=== PATIENT | female | born 1995 | race American Indian/Alaskan Native ===

== ENCOUNTER 2018-05-27 03:26 | Inpatient (IN) | payer MEDICAID ==
[2018-05-27] MEDS ORDERED: Lactated Ringers 1,000 ML IV SCH ×2 (03:45→05:45)
[2018-05-27] MEDS ORDERED: Lactated Ringers 1,000 ML IV ONE (03:45)
[2018-05-27] MEDS ORDERED: Ondansetron 4 MG/2 ML SDV IV PRN (04:05)
[2018-05-27] MEDS ORDERED: fentaNYL 100 MCG/2 ML SDV ONE (04:22)
[2018-05-27] MEDS ORDERED: Bupivacaine 0.75%/D5W 2 ML Amp ONE (04:22)
[2018-05-27] MEDS ORDERED: EPINEPHrine 1 MG/ML SDV ONE (04:23)
--- NOTE | 2018-05-27 05:05 | PCM.PRNOTE ---
- Free Text/Narrative Note: Requested to provide analgesia to full term patient in severe pain. Upon entering the room, patient is supine in bed complaining of severe abdominal/ pelvic pain and discomfort. Procedure was discussed with patient including adverse outcomes and expectations. Pt consented to analgesia, SAB/IT. Pt placed into a sitting position. Landmarks for SAB/IT were identified and marked. Hands were washed and appropriate PPE was applied. Back was prepped with betadine x3. A sterile, transparent, fenestrated drape was applied. Excess betadine was removed. Using 3 mL of a 1% lidocaine solution, a skin wheel was placed at the L3/L4 interspace. A 24 ga (4 inch) Pencan spinal needle was inserted until positive for CSF. Negative for heme or paresthesias. Injected fentanyl 30 mcg, sufentanil 20 mcg, and 9.75 mg of a 0.75% bupivacaine solution with an epi wash. Pt was placed left lateral position for approximately 20 minutes. There were zero complications or adverse outcomes. Will continue to monitor. Procedure Date & Time: 05/27/18 [id number]
[2018-05-27] MEDS ORDERED: Misoprostol 400 MCG (4 X 100 MCG TAB) RECTAL PRN (05:45)
[2018-05-27] MEDS ORDERED: Sodium Chloride 0.9% 10 ML Syringe FLUSH PRN (05:45)
[2018-05-27] MEDS ORDERED: Simethicone 80 MG Tab.Chew PO PRN (05:45)
[2018-05-27] MEDS ORDERED: Measles, Mumps & Rubella Vaccine 0.5 ML SDV SUBCUT ONE (05:45)
[2018-05-27] MEDS ORDERED: Benzocaine/Menthol 20%-0.5% Spray 56 GM Canister TOP PRN (05:45)
[2018-05-27] MEDS ORDERED: Zolpidem 5 MG Tab PO PRN (05:45)
[2018-05-27] MEDS ORDERED: Tranexamic Acid 1,000 MG in Sodium Chloride 0.9% 100 ML IV PRN (05:45)
[2018-05-27] MEDS ORDERED: Carboprost Tromethamine 250 MCG/1 ML Amp IM PRN (05:45)
[2018-05-27] MEDS ORDERED: Oxytocin/Normal Saline 30 UNIT/500 ML BAG IV SCH ×2 (05:45)
[2018-05-27] MEDS ORDERED: Acetaminophen 325 MG Tab PO PRN ×2 (05:45)
--- NOTE | 2018-05-27 06:34 | HP ---
CHIEF COMPLAINT: "I'm in labor." HISTORY OF PRESENT ILLNESS: Ms. Barksdale is a 22-year-old, 3, para 2-0 - 0-2 female, last menstrual period 08/14/2017, EDC 05/21/2018, EGA 40 and 6/7 weeks' gestation, who reported to Labor and Delivery at [facility] in [place] with an increasing force and frequency of contractions. She has had scant care with her first visit being at 33 weeks' gestation. She has not had any issues in the . She denies any nausea, vomiting, or diarrhea. No fever or chills. No hematochezia, hematemesis, hematuria. No dysuria, frequency, or urgency with urination. No leg pain, leg edema, or back pain. She is having some abdominal pain with her contractions. She denies any bleeding or leakage of fluid. She is comfortable now after her intrathecal. PAST MEDICAL HISTORY: Besides being anemic in her , she has not had any issues. She denies any asthma, cancer, diabetes, seizure disorder, hypertension, heart disease, thyroid disorder, thromboembolic disease, breast lesions, or blood transfusions. FAMILY HISTORY: Positive for hypertension, diabetes, kidney disease, MIs, but no cancer or lung problems. PAST SURGICAL HISTORY: Appendectomy in 06/2016. SOCIAL HISTORY: She denies any tobacco use, alcohol use, or illicit drug use. She does have significant other, who is here with her. She has urine drug screen positive for oxycodone and cannabinoids during this . OBSTETRICAL HISTORY: On 09/01/2014, delivery of an 8 pound 9 ounce female via normal spontaneous vaginal delivery at term, 04/13/2016, delivery of a 6 pound 8 ounce male via normal spontaneous vaginal delivery at term. ALLERGIES: Amoxicillin causes hives. MEDICATIONS: 1. vitamins. 2. Iron. GYNECOLOGICAL HISTORY: She denies any STIs or abnormal Pap smears. REVIEW OF SYSTEMS: All pertinent positives and negatives review of systems per HPI. All other systems reviewed are negative. A 10-point review of systems discussed with the patient. She has no issues. LABORATORY DATA: Blood type A positive. Antibody screen negative. Rubella nonimmune. Hepatitis B surface antigen nonreactive. HIV negative. Hepatitis C antibody nonreactive. Group B strep vaginal culture negative. OBJECTIVE: General: Well-developed, well-nourished female, in no acute distress. Vital Signs: Stable. Afebrile. HEENT: Unremarkable. Neck: Supple without adenopathy. No thyromegaly. Lungs: Clear to auscultation. No wheezing, rhonchi, or rales noted. Cardiovascular: Regular rate and rhythm without murmurs. Abdomen: Gravid, nontender. Fundal height 39 cm. heart tones 130s to 140s, category 1 strip. Reactive. Contractions every 4 to 5 minutes apart. Genitourinary: Cervix is 5 cm dilated, 80% effaced, and -2 station. Bulging bag of gaytan. Artificial rupture of membranes occurred with clear fluid noted. Extremities: No edema, erythema, or tenderness noted. ASSESSMENT: 1. A 40 and 6/7 weeks' intrauterine . 2. Active labor. 3. Artificial rupture of membranes with clear fluid. 4. Positive oxycodone and cannabinoids in the urine. 5. Chronic anemia of . 6. Late care. 7. Rubella Non-Immune PLAN: 1. Expect vaginal delivery. 2. We will give vitamin and iron replacement after delivery. 3. All questions answered. 4. Social work consult. MODL /[id number] TORRES
--- NOTE | 2018-05-27 07:42 | PCM.DEL ---
L & D Note - General Info Date of Service: 05/27/18 (0720 ) Mother's Due Date: 05/21/18 (40 6/7 weeks gestation) - Delivery Note Labor: Spontaneous, Augmented by ARM Delivery Outcome: Livebirth Delivery Method: Spontaneous Vaginal Delivery-Single Presentation: Vertex Nuchal Cord: Present (Loose nuchal cord X 1.), Reduced Anesthesia Type: Intrathecal Amniotic Fluid Description: Clear Episiotomy Type: None Laceration: None Placenta: Intact, Spontaneous Estimated Blood Loss: 450 Resuscitation Needed: No : Suctioned, Bulb Syringe, [place] Used Provider: Kendall Caro Score 1 min: 9 Score 5 min: 9 Delivery Comments (Free Text/Narrative):: , OA, Viable female infant over intact perineum. Cord 3 vessel around neck X 1. Placenta delivered by simple expression intact. Mother and infant in good condition. No complications. Viable female; Weight- 8lbs 10 oz Length- 20 1/4 's 9 and 9. - General Info Date of Service: 05/27/18 - Review of Systems General: Reports: No Symptoms HEENT: Reports: No Symptoms Pulmonary: Reports: No Symptoms Cardiovascular: Reports: No Symptoms Gastrointestinal: Reports: No Symptoms Genitourinary: Reports: No Symptoms Musculoskeletal: Reports: No Symptoms Skin: Reports: No Symptoms Neurological: Reports: No Symptoms Psychiatric: Reports: No Symptoms - Patient Data Vitals - Most Recent: Last Vital Signs Temp 97.8 F 05/27/18 03:34 Pulse 59 L 05/27/18 05:45 Resp 16 05/27/18 05:45 BP 97/56 L 05/27/18 05:45 Pulse Ox 93 L 05/27/18 05:45 Weight - Most Recent: 144 lb I&O - Last 24 Hours: Intake & Output 05/26/18 05/27/18 05/27/18 22:59 06:59 14:59 Intake Total 38628 Balance 90025 Lab Results Last 24 Hours: Laboratory Results - last 24 hr 05/27/18 05/27/18 Range/Units 03:45 04:05 WBC 6.7 (5.0-10.0) 10^3/uL RBC 4.01 L (4.2-5.4) 10^6/uL Hgb 9.6 L (12.0-16.0) g/dL Hct 31.3 L (37.0-47.0) % MCV 78.1 L D (80-100) fL MCH 23.9 L (27.0-34.0) pg MCHC 30.7 L (33.0-35.0) g/dL Plt Count 237 (150-450) 10^3/uL Urine Opiates Screen Negative (NEGATIVE) Ur Oxycodone Screen Positive H (NEGATIVE) Urine Methadone Screen Negative (NEGATIVE) Ur Barbiturates Screen Negative (NEGATIVE) U Tricyclic Antidepress Negative (NEGATIVE) Ur Phencyclidine Scrn Negative (NEGATIVE) Ur Amphetamine Screen Negative (NEGATIVE) U Methamphetamines Scrn Negative (NEGATIVE) Urine MDMA Screen Negative (NEGATIVE) U Benzodiazepines Scrn Negative (NEGATIVE) Urine Cocaine Screen Negative (NEGATIVE) U Marijuana (THC) Screen Positive H (NEGATIVE) Med Orders - Current: Current Medications Acetaminophen (Tylenol) 650 mg PO Q4H PRN PRN Reason: Pain/Fever Acetaminophen (Tylenol) 650 mg PO Q6H PRN PRN Reason: mild pain or fever Benzocaine/Menthol (Dermoplast Pain Relief [place]) 0 gm TOP Q4H PRN PRN Reason: Perineal comfort measures Carboprost Tromethamine (Hemabate Ds) 250 mcg IM ASDIRECTED PRN PRN Reason: Excessive vaginal bleeding Docusate Sodium (Colace) 100 mg PO BID PRN PRN Reason: Constipation Ferrous Sulfate (Ferrous Sulfate) 325 mg PO TIDMEALS [facility] Lactated Ringer's (Ringers, Lactated) 1,000 mls @ 125 mls/hr IV ASDIRECTED [facility] Last Admin: 05/27/18 04:43 Dose: 125 mls/hr Lactated Ringer's (Ringers, Lactated) 1,000 mls @ 125 mls/hr IV ASDIRECTED [facility] Oxytocin/Sodium Chloride (Pitocin In Ns 30 Unit/500 Ml) 30 unit in 500 mls @ 2 mls/hr IV TITRATE [facility]; Protocol Tranexamic Acid 1,000 mg/ (Sodium Chloride) 110 mls @ 660 mls/hr IV ONETIME PRN PRN Reason: Bleeding Oxytocin/Sodium Chloride (Pitocin In Ns 30 Unit/500 Ml) 30 unit in 500 mls @ 2 mls/hr IV TITRATE [facility]; Protocol Ibuprofen (Motrin) 800 mg PO Q8H PRN PRN Reason: Mild Pain or Fever Misoprostol (Cytotec) 800 mcg RECTAL ONETIME PRN PRN Reason: Hemorrhage Ondansetron HCl (Zofran) 4 mg IV Q4H PRN PRN Reason: Nausea/Vomiting Last Admin: 05/27/18 04:20 Dose: 4 mg Prenat Multivit/[place]/Iron/Folic Ac ( Plus Iron) 1 each PO DAILY [facility] Simethicone (Simethicone) 80 mg PO Q4H PRN PRN Reason: Gas Sodium Chloride (Saline Flush) 10 ml FLUSH ASDIRECTED PRN PRN Reason: Keep Vein Open Zolpidem Tartrate (Ambien) 5 mg PO BEDTIME PRN PRN Reason: Insomnia Discontinued Medications Bupivacaine HCl/Dextrose (Marcaine 0.75% Spinal) Confirm Administered Dose 2 ml .ROUTE .STK-MED ONE Stop: 05/27/18 04:23 Last Admin: 05/27/18 04:58 Dose: Not Given Epinephrine HCl (Adrenalin) Confirm Administered Dose 1 mg .ROUTE .STK-MED ONE Stop: 05/27/18 04:24 Last Admin: 05/27/18 04:58 Dose: Not Given Fentanyl (Sublimaze) Confirm Administered Dose 100 mcg .ROUTE .STK-MED ONE Stop: 05/27/18 04:23 Last Admin: 05/27/18 04:58 Dose: Not Given Lactated Ringer's (Ringers, Lactated) 1,000 mls @ 999 mls/hr IV .BOLUS ONE Stop: 05/27/18 04:45 Last Admin: 05/27/18 04:00 Dose: 999 mls/hr Measles/Mumps/Rubella Vaccine Live (M-M-R Ii Vaccine) 0.5 ml SUBCUT .ONCE ONE Stop: 05/27/18 05:46 Sufentanil Citrate (Sufenta) Confirm Administered Dose 50 mcg .ROUTE .STK-MED ONE Stop: 05/27/18 04:24 Last Admin: 05/27/18 04:58 Dose: Not Given - Problem List Review Problem List Initiated/Reviewed/Updated: Yes - My Orders Last 24 Hours: My Active Orders 05/27/18 03:45 Lactated Ringers [Ringers, Lactated] 1,000 ml IV ASDIRECTED 05/27/18 04:05 DRUG SCREEN URINE BIORAD [URCHEM] Routine Ondansetron [Zofran] 4 mg IV Q4H PRN 05/27/18 05:45 Consult to Team Primary Care Physician [CONS] Routine Acetaminophen [Tylenol] 650 mg PO Q4H PRN Acetaminophen [Tylenol] 650 mg PO Q6H PRN Benzocaine/Menthol [Dermoplast Pain Relief [place]] See Dose Instructions TOP Q4H PRN Carboprost Tromethamine [Hemabate DS] 250 mcg IM ASDIRECTED PRN Docusate Sodium [Colace] 100 mg PO BID PRN Ibuprofen [Motrin] 800 mg PO Q8H PRN Lactated Ringers [Ringers, Lactated] 1,000 ml IV ASDIRECTED Misoprostol [Cytotec] 800 mcg RECTAL ONETIME PRN Oxytocin/Normal Saline [Pitocin in NS 30 UNIT/500 ML] 30 unit in 500 ml IV TITRATE Oxytocin/Normal Saline [Pitocin in NS 30 UNIT/500 ML] 30 unit in 500 ml IV TITRATE Simethicone 80 mg PO Q4H PRN Sodium Chloride 0.9% [Saline Flush] 10 ml FLUSH ASDIRECTED PRN Tranexamic Acid [Cyklokapron] 1,000 mg Sodium Chloride 0.9% [Normal Saline] 100 ml IV ONETIME Zolpidem [Ambien] 5 mg PO BEDTIME PRN Resuscitation Status Routine 05/27/18 05:46 Patient Status [ADT] Routine Communication Order [RC] ASDIRECTED Communication Order [RC] ASDIRECTED Communication Order [RC] ASDIRECTED Communication Order [RC] ASDIRECTED Notify Provider Vital Signs OB [RC] ASDIRECTED Notify Provider [RC] PRN Up ad Tabatha [RC] ASDIRECTED Up ad Tabatha [RC] PER UNIT ROUTINE Vaginal Exam [RC] PRN Vital Signs [RC] PER UNIT ROUTINE Assess Lochia [WOMSER] Per Unit Routine Assess Uterine Involution [WOMSER] Per Unit Routine Breast Pump [WOMSER] Per Unit Routine Ice Therapy [OM.PC] Per Unit Routine Perineal Care [OM.PC] Per Unit Routine Peripheral IV Insertion Adult [OM.PC] Urgent Saline Lock Insert [OM.PC] Urgent Sitz Bath [OM.PC] Per Unit Routine 05/27/18 05:47 Peripheral IV Care [RC] . DIRECTED 05/27/18 08:00 Ferrous Sulfate 325 mg PO TIDMEALS 05/27/18 09:00 Vit with Ca/FA/Iron [ Plus Iron] 1 each PO DAILY 05/27/18 Breakfast Clear Liquid Diet [DIET] 05/27/18 Lunch Regular Diet [DIET] 05/28/18 06:00 CBC W/O DIFF,HEMOGRAM [HEME] Routine
[2018-05-27] MEDS: Ferrous Sulfate 325 MG Tab PO SCH ×3 (10:29→19:41)
[2018-05-27] MEDS: Docusate Sodium 100 MG Cap PO PRN ×2 (10:29→19:28)
[2018-05-27] MEDS: Ibuprofen 800 MG Tab PO PRN ×2 (10:30→19:27)
[2018-05-27] MEDS: Prenatal Multivitamin with Calcium/Folic Acid/Iron Tab PO SCH (10:30)
--- NOTE | 2018-05-28 03:52 | PCM.PNPP ---
- General Info Date of Service: 05/28/18 (PPD # 1 S/P ) Functional Status: Reports: Pain Controlled, Tolerating Diet, Ambulating, Urinating - Review of Systems General: Reports: No Symptoms HEENT: Reports: No Symptoms Pulmonary: Reports: No Symptoms Cardiovascular: Reports: No Symptoms Gastrointestinal: Reports: No Symptoms Genitourinary: Reports: No Symptoms Musculoskeletal: Reports: No Symptoms Skin: Reports: No Symptoms Neurological: Reports: No Symptoms Psychiatric: Reports: No Symptoms - General Info Date of Service: 05/28/18 (PPD # 1 S/P ) - Patient Data Vital Signs - Most Recent: Last Vital Signs Temp 99.1 F 05/27/18 19:32 Pulse 72 05/27/18 19:32 Resp 16 05/27/18 19:32 BP 124/77 05/27/18 19:32 Pulse Ox 100 05/27/18 19:32 Weight - Most Recent: 144 lb I&O - Last 24 Hours: Intake & Output 05/27/18 05/27/18 05/28/18 14:59 22:59 06:59 Intake Total 2100 Balance 2100 Lab Results - Last 24 Hours: Laboratory Results - last 24 hr 05/27/18 05/27/18 Range/Units 03:45 04:05 WBC 6.7 (5.0-10.0) 10^3/uL RBC 4.01 L (4.2-5.4) 10^6/uL Hgb 9.6 L (12.0-16.0) g/dL Hct 31.3 L (37.0-47.0) % MCV 78.1 L D (80-100) fL MCH 23.9 L (27.0-34.0) pg MCHC 30.7 L (33.0-35.0) g/dL Plt Count 237 (150-450) 10^3/uL Urine Opiates Screen Negative (NEGATIVE) Ur Oxycodone Screen Positive H (NEGATIVE) Urine Methadone Screen Negative (NEGATIVE) Ur Barbiturates Screen Negative (NEGATIVE) U Tricyclic Antidepress Negative (NEGATIVE) Ur Phencyclidine Scrn Negative (NEGATIVE) Ur Amphetamine Screen Negative (NEGATIVE) U Methamphetamines Scrn Negative (NEGATIVE) Urine MDMA Screen Negative (NEGATIVE) U Benzodiazepines Scrn Negative (NEGATIVE) Urine Cocaine Screen Negative (NEGATIVE) U Marijuana (THC) Screen Positive H (NEGATIVE) Med Orders - Current: Current Medications Acetaminophen (Tylenol) 650 mg PO Q6H PRN PRN Reason: mild pain or fever Benzocaine/Menthol (Dermoplast Pain Relief [place]) 0 gm TOP Q4H PRN PRN Reason: Perineal comfort measures Carboprost Tromethamine (Hemabate Ds) 250 mcg IM ASDIRECTED PRN PRN Reason: Excessive vaginal bleeding Docusate Sodium (Colace) 100 mg PO BID PRN PRN Reason: Constipation Last Admin: 05/27/18 19:28 Dose: 100 mg Ferrous Sulfate (Ferrous Sulfate) 325 mg PO TIDMEALS [facility] Last Admin: 05/27/18 19:41 Dose: Not Given Lactated Ringer's (Ringers, Lactated) 1,000 mls @ 125 mls/hr IV ASDIRECTED [facility] Last Admin: 05/27/18 04:43 Dose: 125 mls/hr Lactated Ringer's (Ringers, Lactated) 1,000 mls @ 125 mls/hr IV ASDIRECTED [facility] Oxytocin/Sodium Chloride (Pitocin In Ns 30 Unit/500 Ml) 30 unit in 500 mls @ 2 mls/hr IV TITRATE [facility]; Protocol Last Titration: 05/27/18 10:10 Dose: Infused Tranexamic Acid 1,000 mg/ (Sodium Chloride) 110 mls @ 660 mls/hr IV ONETIME PRN PRN Reason: Bleeding Ibuprofen (Motrin) 800 mg PO Q8H PRN PRN Reason: Mild Pain or Fever Last Admin: 05/27/18 19:27 Dose: 800 mg Misoprostol (Cytotec) 800 mcg RECTAL ONETIME PRN PRN Reason: Hemorrhage Ondansetron HCl (Zofran) 4 mg IV Q4H PRN PRN Reason: Nausea/Vomiting Last Admin: 05/27/18 04:20 Dose: 4 mg Prenat Multivit/Public Service Representative/Iron/Folic Ac ( Plus Iron) 1 each PO DAILY [facility] Last Admin: 05/27/18 10:30 Dose: 1 each Simethicone (Simethicone) 80 mg PO Q4H PRN PRN Reason: Gas Sodium Chloride (Saline Flush) 10 ml FLUSH ASDIRECTED PRN PRN Reason: Keep Vein Open Zolpidem Tartrate (Ambien) 5 mg PO BEDTIME PRN PRN Reason: Insomnia Discontinued Medications Acetaminophen (Tylenol) 650 mg PO Q4H PRN PRN Reason: Pain/Fever Bupivacaine HCl/Dextrose (Marcaine 0.75% Spinal) Confirm Administered Dose 2 ml .ROUTE .STK-MED ONE Stop: 05/27/18 04:23 Last Admin: 05/27/18 04:58 Dose: Not Given Epinephrine HCl (Adrenalin) Confirm Administered Dose 1 mg .ROUTE .STK-MED ONE Stop: 05/27/18 04:24 Last Admin: 05/27/18 04:58 Dose: Not Given Fentanyl (Sublimaze) Confirm Administered Dose 100 mcg .ROUTE .STK-MED ONE Stop: 05/27/18 04:23 Last Admin: 05/27/18 04:58 Dose: Not Given Lactated Ringer's (Ringers, Lactated) 1,000 mls @ 999 mls/hr IV .BOLUS ONE Stop: 05/27/18 04:45 Last Admin: 05/27/18 04:00 Dose: 999 mls/hr Oxytocin/Sodium Chloride (Pitocin In Ns 30 Unit/500 Ml) 30 unit in 500 mls @ 2 mls/hr IV TITRATE [facility]; Protocol Measles/Mumps/Rubella Vaccine Live (M-M-R Ii Vaccine) 0.5 ml SUBCUT .ONCE ONE Stop: 05/27/18 05:46 Sufentanil Citrate (Sufenta) Confirm Administered Dose 50 mcg .ROUTE .STK-MED ONE Stop: 05/27/18 04:24 Last Admin: 05/27/18 04:58 Dose: Not Given - Infant Interaction Disposition, : in Room with Family Interaction: Holding Infant Feeding: Bottle Fed Infant Support Person: Significant Other - Recovery Exam Fundal Tone: Firm Fundal Level: 3 Fingerbreadths Below Umbilicus Fundal Placement: Midline Lochia Amount: Small Lochia Color: Rubra/Red Perineum Description: Intact, Minimal Bruising/Swelling Episiotomy/Laceration: None Bladder Status: Voiding Urinary Elimination: Voided - Exam General: Alert, Oriented, Cooperative, No Acute Distress HEENT: Pupils Equal, Pupils Reactive, Mucous Membr. Moist/[place] Neck: Supple, Trachea Midline Lungs: Clear to Auscultation, Normal Respiratory Effort Cardiovascular: Regular Rate, Regular Rhythm, No Murmurs GI/Abdominal Exam: Normal Bowel Sounds, Soft, Non-Tender, No Distention Extremities: Normal Inspection, Normal Range of Motion, Non-Tender, No Pedal Edema Skin: Warm, Dry, Intact Neurological: No New Focal Deficit, Normal Gait, Normal Speech, Normal Tone Psy/Mental Status: Alert, Normal Affect, Normal Mood - Problem List Review Problem List Initiated/Reviewed/Updated: Yes - My Orders Last 24 Hours: My Active Orders 05/27/18 03:45 Lactated Ringers [Ringers, Lactated] 1,000 ml IV ASDIRECTED 05/27/18 04:05 DRUG SCREEN URINE BIORAD [URCHEM] Routine Ondansetron [Zofran] 4 mg IV Q4H PRN 05/27/18 05:45 Consult to Stain Applicator [CONS] Routine Acetaminophen [Tylenol] 650 mg PO Q6H PRN Benzocaine/Menthol [Dermoplast Pain Relief [place]] See Dose Instructions TOP Q4H PRN Carboprost Tromethamine [Hemabate DS] 250 mcg IM ASDIRECTED PRN Docusate Sodium [Colace] 100 mg PO BID PRN Ibuprofen [Motrin] 800 mg PO Q8H PRN Lactated Ringers [Ringers, Lactated] 1,000 ml IV ASDIRECTED Misoprostol [Cytotec] 800 mcg RECTAL ONETIME PRN Oxytocin/Normal Saline [Pitocin in NS 30 UNIT/500 ML] 30 unit in 500 ml IV TITRATE Simethicone 80 mg PO Q4H PRN Sodium Chloride 0.9% [Saline Flush] 10 ml FLUSH ASDIRECTED PRN Tranexamic Acid [Cyklokapron] 1,000 mg Sodium Chloride 0.9% [Normal Saline] 100 ml IV ONETIME Zolpidem [Ambien] 5 mg PO BEDTIME PRN Resuscitation Status Routine 05/27/18 05:46 Patient Status [ADT] Routine Notify Provider Vital Signs OB [RC] ASDIRECTED Notify Provider [RC] PRN Up ad Tabatha [RC] PER UNIT ROUTINE Vital Signs [RC] 08,20 Assess Lochia [WOMSER] Per Unit Routine Assess Uterine Involution [WOMSER] Per Unit Routine Breast Pump [WOMSER] Per Unit Routine Ice Therapy [OM.PC] Per Unit Routine Perineal Care [OM.PC] Per Unit Routine Peripheral IV Insertion Adult [OM.PC] Urgent Saline Lock Insert [OM.PC] Urgent Sitz Bath [OM.PC] Per Unit Routine 05/27/18 05:47 Peripheral IV Care [RC] 05/27/18 08:00 Ferrous Sulfate 325 mg PO TIDMEALS 05/27/18 09:00 Vit with Ca/FA/Iron [ Plus Iron] 1 each PO DAILY 05/27/18 Breakfast Clear Liquid Diet [DIET] 05/27/18 Lunch Regular Diet [DIET] 05/28/18 06:00 CBC W/O DIFF,HEMOGRAM [HEME] Routine - Assessment Assessment:: PPD # 1 S/P Late care Positive Oxycodone/Cannaboids in urine - Plan Plan:: Continue present care human services manager consult Increase ambulation Discharge planning.
[2018-05-28] MEDS: Ibuprofen 800 MG Tab PO PRN (08:20)
[2018-05-28] MEDS: Prenatal Multivitamin with Calcium/Folic Acid/Iron Tab PO SCH (08:20)
[2018-05-28] MEDS: Docusate Sodium 100 MG Cap PO PRN (08:20)
[2018-05-28] MEDS: Ferrous Sulfate 325 MG Tab PO SCH ×2 (08:21→12:21)
[2018-05-28 09:13] VITALS: BP 114/71
--- NOTE | 2018-05-28 13:20 | PCM.DCSUM1 ---
Discharge Summary - Hospital Course Brief History: Patient presented in active labor and delivered a term girl via . - Discharge Data Discharge Date: 05/28/18 Discharge Disposition: Home, Self-Care 01 Condition: Good - Patient Summary/Data Consults: Consultations 05/27/18 05:45 Consult to Intelligent Systems Engineer [CONS] Routine - Patient Instructions Diet: Usual Diet as Tolerated Activity: As Tolerated - Discharge Plan *PRESCRIPTION DRUG MONITORING PROGRAM REVIEWED*: Not Applicable *COPY OF PRESCRIPTION DRUG MONITORING REPORT IN PATIENT SIMIN: Not Applicable Home Medications: Home Meds PNV95/Ferrous Fumarate/FA [ Tablet] 1 tab PO DAILY 03/30/18 [History] Patient Handouts: Substance Use Disorder, Home Care Instructions for Mom, Care After Vaginal Delivery Referrals: Sonia Lee MD [Physician] - (Make appointment for 6 week post check at [facility]) - Patient Data Vitals - Most Recent: Last Vital Signs Temp 98.6 F 05/28/18 08:00 Pulse 64 05/28/18 08:00 Resp 16 05/28/18 08:00 BP 114/71 05/28/18 08:00 Pulse Ox 100 05/27/18 19:32 Weight - Most Recent: 65.317 kg Lab Results - Last 24 hrs: Laboratory Results - last 24 hr 05/28/18 Range/Units 06:12 WBC 9.1 (5.0-10.0) 10^3/uL RBC 3.38 L (4.2-5.4) 10^6/uL Hgb 8.2 L (12.0-16.0) g/dL Hct 26.7 L (37.0-47.0) % MCV 79.0 L (80-100) fL MCH 24.3 L (27.0-34.0) pg MCHC 30.7 L (33.0-35.0) g/dL Plt Count 181 (150-450) 10^3/uL Med Orders - Current: Current Medications Acetaminophen (Tylenol) 650 mg PO Q6H PRN PRN Reason: mild pain or fever Benzocaine/Menthol (Dermoplast Pain Relief [place]) 0 gm TOP Q4H PRN PRN Reason: Perineal comfort measures Carboprost Tromethamine (Hemabate Ds) 250 mcg IM ASDIRECTED PRN PRN Reason: Excessive vaginal bleeding Docusate Sodium (Colace) 100 mg PO BID PRN PRN Reason: Constipation Last Admin: 05/28/18 08:20 Dose: 100 mg Ferrous Sulfate (Ferrous Sulfate) 325 mg PO TIDMEALS [facility] Last Admin: 05/28/18 12:21 Dose: 325 mg Lactated Ringer's (Ringers, Lactated) 1,000 mls @ 125 mls/hr IV ASDIRECTED [facility] Last Admin: 05/27/18 04:43 Dose: 125 mls/hr Lactated Ringer's (Ringers, Lactated) 1,000 mls @ 125 mls/hr IV ASDIRECTED [facility] Oxytocin/Sodium Chloride (Pitocin In Ns 30 Unit/500 Ml) 30 unit in 500 mls @ 2 mls/hr IV TITRATE [facility]; Protocol Last Titration: 05/27/18 10:10 Dose: Infused Tranexamic Acid 1,000 mg/ (Sodium Chloride) 110 mls @ 660 mls/hr IV ONETIME PRN PRN Reason: Bleeding Ibuprofen (Motrin) 800 mg PO Q8H PRN PRN Reason: Mild Pain or Fever Last Admin: 05/28/18 08:20 Dose: 800 mg Misoprostol (Cytotec) 800 mcg RECTAL ONETIME PRN PRN Reason: Hemorrhage Ondansetron HCl (Zofran) 4 mg IV Q4H PRN PRN Reason: Nausea/Vomiting Last Admin: 05/27/18 04:20 Dose: 4 mg Prenat Multivit/[place]/Iron/Folic Ac ( Plus Iron) 1 each PO DAILY [facility] Last Admin: 05/28/18 08:20 Dose: 1 each Simethicone (Simethicone) 80 mg PO Q4H PRN PRN Reason: Gas Sodium Chloride (Saline Flush) 10 ml FLUSH ASDIRECTED PRN PRN Reason: Keep Vein Open Zolpidem Tartrate (Ambien) 5 mg PO BEDTIME PRN PRN Reason: Insomnia Discontinued Medications Acetaminophen (Tylenol) 650 mg PO Q4H PRN PRN Reason: Pain/Fever Bupivacaine HCl/Dextrose (Marcaine 0.75% Spinal) Confirm Administered Dose 2 ml .ROUTE .STK-MED ONE Stop: 05/27/18 04:23 Last Admin: 05/27/18 04:58 Dose: Not Given Epinephrine HCl (Adrenalin) Confirm Administered Dose 1 mg .ROUTE .STK-MED ONE Stop: 05/27/18 04:24 Last Admin: 05/27/18 04:58 Dose: Not Given Fentanyl (Sublimaze) Confirm Administered Dose 100 mcg .ROUTE .STK-MED ONE Stop: 05/27/18 04:23 Last Admin: 05/27/18 04:58 Dose: Not Given Lactated Ringer's (Ringers, Lactated) 1,000 mls @ 999 mls/hr IV .BOLUS ONE Stop: 05/27/18 04:45 Last Admin: 05/27/18 04:00 Dose: 999 mls/hr Oxytocin/Sodium Chloride (Pitocin In Ns 30 Unit/500 Ml) 30 unit in 500 mls @ 2 mls/hr IV TITRATE [facility]; Protocol Measles/Mumps/Rubella Vaccine Live (M-M-R Ii Vaccine) 0.5 ml SUBCUT .ONCE ONE Stop: 05/27/18 05:46 Last Admin: 05/28/18 12:19 Dose: 0.5 ml Sufentanil Citrate (Sufenta) Confirm Administered Dose 50 mcg .ROUTE .STK-MED ONE Stop: 05/27/18 04:24 Last Admin: 05/27/18 04:58 Dose: Not Given
[2018-05-28] MEDS ORDERED: EPINEPHrine 1 MG/ML SDV ONE (13:29)
[2018-05-28] MEDS ORDERED: Bupivacaine 0.75%/D5W 2 ML Amp INJECT ONE (13:29)
[2018-05-28] MEDS ORDERED: fentaNYL 100 MCG/2 ML SDV ITHECAL ONE (13:29)
== END 2018-05-28 13:30 | disposition home or self-care (01) | DRG 775 ==
LOC: DL.OBCHECK 03:26 → DL.OB 03:40 → OBSVTOIN 07:20 → DL.OB 07:20
PROVIDERS: ADMIT Obstetrics & Gynecology; ATTEND Obstetrics & Gynecology
PROC: 10E0XZZ Delivery of Products of Conception, External Approach (ICD-10-PCS; principal; 2018-05-27)
PROC: 10907ZC Drainage of Amniotic Fluid, Therapeutic from Products of Conception, Via Natural or Artificial Opening (ICD-10-PCS; 2018-05-27)
PROC: 3E0S3GC Introduction of Other Therapeutic Substance into Epidural Space, Percutaneous Approach (ICD-10-PCS; 2018-05-27)
DX: O99.02 Anemia complicating childbirth (principal); O99.323 Drug use complicating pregnancy, third trimester; O69.81X0 Labor and delivery complicated by cord around neck, without compression, not applicable or unspecified; Z37.0 Single live birth; D63.8 Anemia in other chronic diseases classified elsewhere; Z3A.40 40 weeks gestation of pregnancy; F12.90 Cannabis use, unspecified, uncomplicated; F11.90 Opioid use, unspecified, uncomplicated; Z88.0 Allergy status to penicillin
CPT/HCPCS: 01967; 36415; 59025; 59409; 80305-QW; 85027; 90707; A9270-GY; J0171; J2405; J2590; J3010; J7120

== ENCOUNTER 2019-10-26 13:52 | Inpatient (IN) | payer MEDICAID ==
[2019-10-26] MEDS ORDERED: Oxytocin 10 Units/1 ML SDV IM ONE (14:13)
[2019-10-26] MEDS ORDERED: Oxytocin 10 Units/1 ML SDV ONE (14:18)
[2019-10-26] MEDS ORDERED: Misoprostol 400 MCG (4 X 100 MCG TAB) RECTAL PRN (14:21)
[2019-10-26] MEDS ORDERED: Carboprost Tromethamine 250 MCG/1 ML Amp IM PRN (14:21)
[2019-10-26] MEDS ORDERED: Oxytocin 10 Units/1 ML SDV IM PRN (14:21)
[2019-10-26] MEDS ORDERED: Simethicone 80 MG Tab.Chew PO PRN (14:21)
[2019-10-26] MEDS ORDERED: Sodium Chloride 0.9% 10 ML Syringe FLUSH PRN (14:21)
[2019-10-26] MEDS ORDERED: Tranexamic Acid 1,000 MG in Sodium Chloride 0.9% 100 ML IV PRN (14:21)
[2019-10-26] MEDS ORDERED: Zolpidem 5 MG Tab PO PRN (14:21)
[2019-10-26] MEDS ORDERED: Benzocaine/Menthol 20%-0.5% Spray 56 GM Canister TOP PRN (14:21)
[2019-10-26] MEDS: Ibuprofen 800 MG Tab PO PRN ×2 (15:23→23:39)
--- NOTE | 2019-10-26 18:26 | HP ---
LOCATION: [facility]. HISTORY OF PRESENT ILLNESS: The patient is a 24-year-old, G4, P4, with an estimated due date of 11/14/2019. She states that was given to her by 3 appointments that she has had at [facility]. Has a very limited care. She did deliver at home at 12:58 p.m., and the patient states the placenta did deliver shortly after that. EMS did bring mom and baby in the hospital. OB HISTORY: The patient has had 3 vaginal deliveries. 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 No abnormal Paps. PAST MEDICAL HISTORY: Negative. PAST SURGICAL HISTORY: Appendectomy. SOCIAL HISTORY: The patient does smoke sometimes and then did admit to using methamphetamines roughly 3 weeks ago. ALLERGIES: The patient is allergic to penicillin. By that due date, the patient would be 37 weeks and 4 days. PHYSICAL EXAMINATION: Vital Signs: The patient's blood pressure 128/78, temperature 37.2, heart rate 67, respiratory rate 18. General: The patient is alert and oriented x4. Appears well. Pelvis: The uterus is firm, now below the umbilicus. Perineum was examined, it was intact. Placenta was also examined, it did appear intact, 3-vessel cord. Our family physician was called to examine the baby, but the baby appeared in no distress either. LABORATORY DATA: All labs were ordered. Blood type A positive, antibody negative. HIV negative. White blood cell count of 11.6, hemoglobin 8.0, platelets are 312. Hepatitis B, hepatitis C, urine drug screen, RPR, rubella, and urinalysis are all still pending. ASSESSMENT AND PLAN: Status post vaginal delivery outside of the hospital with limited to no care. Mom and baby do appear well. We did give the patient 10 units of Pitocin IM to avoid any hemorrhage. We will start iron for her anemia and repeat a hemoglobin in the morning, and we will continue to follow up on these labs. [facility] /[id number]
[2019-10-26] MEDS: Acetaminophen 325 MG Tab PO PRN (19:42)
[2019-10-26] MEDS: Docusate Sodium 100 MG Cap PO PRN (19:43)
[2019-10-26] MEDS: Nitrofurantoin Monohydrate/Macrocrystalline 100 MG Cap PO SCH (23:39)
[2019-10-27] MEDS: Prenatal Multivitamin with Calcium/Folic Acid/Iron Tab PO SCH (08:27)
[2019-10-27] MEDS: Ibuprofen 800 MG Tab PO PRN ×2 (08:27→18:02)
[2019-10-27] MEDS: Nitrofurantoin Monohydrate/Macrocrystalline 100 MG Cap PO SCH ×2 (08:27→20:23)
--- NOTE | 2019-10-27 13:23 | PN ---
DATE: 10/27/2019 LOCATION: [facility]. SUBJECTIVE: The patient is day 1 from a vaginal delivery outside of the hospital. Her and baby are both doing well. Lochia is minimal. She was diagnosed with UTI on labs yesterday and is on Macrobid. PHYSICAL EXAMINATION: Vital Signs: Temperature 36.9, heart rate 72 to 96, blood pressure 112 to 131 systolic over 54 to 73 diastolic, respiratory rate 16, O2 saturation 100%. Abdomen: The patient's fundus is firm below the umbilicus. Extremities: Have no tenderness, no edema. Hemoglobin prior to delivery was 8. This morning, white blood cell count 8.0, hemoglobin 8.5, and platelets 345 some chronic anemia. Her HIV was negative. The urine drug screen did come back for opiates, methamphetamine, and amphetamines. Hepatitis B, hepatitis C, RPR, and rubella are all still pending. ASSESSMENT AND PLAN: day 1, status post vaginal delivery outside of the hospital with no care. We will continue the Macrobid for her urinary tract infection, also continue iron for her chronic anemia, and likely discharge this patient tomorrow. [facility] /[id number]
[2019-10-27] MEDS: Ferrous Sulfate 325 MG Tab PO SCH (18:02)
[2019-10-27] MEDS: Docusate Sodium 100 MG Cap PO PRN (18:02)
[2019-10-27] MEDS: Acetaminophen 325 MG Tab PO PRN (20:23)
--- NOTE | 2019-10-28 08:24 | PCM.PNPP ---
- General Info Date of Service: 10/28/19 Subjective Update: Patient is post day [address] [facility] at home. Lochia has been minimal. Pain has been well controlled. She is not . She is being treated for a UTI with macrobid and started daily iron for chronic anemia. Functional Status: Reports: Pain Controlled - Review of Systems General: Denies: Fever, Chills HEENT: Denies: Headaches, Visual Changes Pulmonary: Denies: Cough Cardiovascular: Denies: Edema Gastrointestinal: Denies: Abdominal Pain, Nausea, Vomiting Genitourinary: Denies: Dysuria, Frequency, Burning Neurological: Denies: Dizziness, Headache - Patient Data Vital Signs - Most Recent: Last Vital Signs Temp 98.6 F 10/27/19 20:00 Pulse 80 10/27/19 20:00 Resp 16 10/27/19 20:00 BP 100/45 L 10/27/19 20:00 Pulse Ox 100 10/27/19 20:00 Weight - Most Recent: 139 lb I&O - Last 24 Hours: Intake & Output 10/27/19 10/28/19 10/28/19 22:59 06:59 14:59 Intake Total 1200 Balance 1200 Micro Results - Last 24 Hours: Microbiology 10/26/19 19:35 Urine Culture - Final Urine, Clean Catch NO GROWTH AFTER 2 DAYS Med Orders - Current: Current Medications Acetaminophen (Tylenol) 650 mg PO Q6H PRN PRN Reason: mild pain or fever Last Admin: 10/27/19 20:23 Dose: 650 mg Benzocaine/Menthol (Dermoplast Pain Relief [place]) 0 gm TOP Q4H PRN PRN Reason: Perineal comfort measures Carboprost Tromethamine (Hemabate Ds) 250 mcg IM ASDIRECTED PRN PRN Reason: Excessive vaginal bleeding Docusate Sodium (Colace) 100 mg PO BID PRN PRN Reason: Constipation Last Admin: 10/27/19 18:02 Dose: 100 mg Ferrous Sulfate (Ferrous Sulfate) 325 mg PO DAILY KERRI Last Admin: 10/27/19 18:02 Dose: 325 mg Tranexamic Acid 1,000 mg/ (Sodium Chloride) 110 mls @ 660 mls/hr IV ONETIME PRN PRN Reason: Bleeding Ibuprofen (Motrin) 800 mg PO Q8H PRN PRN Reason: Mild Pain or Fever Last Admin: 10/27/19 18:02 Dose: 800 mg Misoprostol (Cytotec) 800 mcg RECTAL ONETIME PRN PRN Reason: Hemorrhage Nitrofurantoin Macrocrystals (Macrobid) 100 mg PO BID [facility] Last Admin: 10/27/19 20:23 Dose: 100 mg Oxytocin (Pitocin) 10 unit IM ONETIME PRN PRN Reason: Bleeding Prenat Multivit/Translator/Interpreter/Iron/Folic Ac ( Plus Iron) 1 each PO DAILY [facility] Last Admin: 10/27/19 08:27 Dose: 1 each Simethicone (Simethicone) 80 mg PO Q4H PRN PRN Reason: Gas Sodium Chloride (Saline Flush) 10 ml FLUSH ASDIRECTED PRN PRN Reason: Keep Vein Open Zolpidem Tartrate (Ambien) 5 mg PO BEDTIME PRN PRN Reason: Insomnia Discontinued Medications Oxytocin (Pitocin) 10 unit IM ONETIME ONE Stop: 10/26/19 14:14 Last Admin: 10/26/19 14:30 Dose: 10 unit Oxytocin (Pitocin) Confirm Administered Dose 10 unit .ROUTE .STK-MED ONE Stop: 10/26/19 14:19 Last Admin: 10/26/19 19:26 Dose: Not Given - Infant Interaction Support Person: Significant Other - Recovery Exam Fundal Tone: Firm Fundal Level: At Umbilicus Fundal Placement: Midline Lochia Amount: Small Lochia Color: Rubra/Red Perineum Description: Intact, Minimal Bruising/Swelling Episiotomy/Laceration: None Bladder Status: Voiding Urinary Elimination: Voided - Exam General: Alert, Oriented HEENT: Mucous Membr. Moist/[place] Neck: Supple Lungs: Clear to Auscultation, Normal Respiratory Effort Cardiovascular: Regular Rate, Regular Rhythm GI/Abdominal Exam: Normal Bowel Sounds, Soft, Non-Tender Extremities: Non-Tender, No Pedal Edema Skin: Warm, Dry Neurological: No New Focal Deficit - Problem List & Annotations (1) Drug use during SNOMED Code(s): 18894260 Code(s): AVK4750 - Status: Acute Current Visit: Yes (2) GBS screening not performed SNOMED Code(s): 316407962 Code(s): XRM5379 - Status: Acute Current Visit: Yes (3) , high-risk, obstetrical care insufficient SNOMED Code(s): 7086357240476 Code(s): O09.30 - SUPRVSN OF PREG W INSUFFICIENT ANTENAT CARE, UNSP TRIMESTER Status: Acute Current Visit: No (4) UTI (urinary tract infection) SNOMED Code(s): 12383411 Code(s): N39.0 - URINARY TRACT INFECTION, SITE NOT SPECIFIED Status: Acute Current Visit: No (5) Vaginal delivery SNOMED Code(s): 964639666 Code(s): O80 - ENCOUNTER FOR FULL-TERM UNCOMPLICATED DELIVERY Status: Acute Current Visit: No - Problem List Review Problem List Initiated/Reviewed/Updated: Yes - Plan Plan:: Continue routine post cares. Will continue oral iron. Urine culture showed no growth, will have completed 3 days of Macrobid today. Routine discharge instructions given. Discussed drug cessation. Will follow up at 6 week post visit. She is interested in control which we will discuss at that visit.
[2019-10-28] MEDS: Nitrofurantoin Monohydrate/Macrocrystalline 100 MG Cap PO SCH (08:43)
[2019-10-28] MEDS: Ferrous Sulfate 325 MG Tab PO SCH (08:43)
[2019-10-28] MEDS: Docusate Sodium 100 MG Cap PO PRN (08:43)
[2019-10-28] MEDS: Ibuprofen 800 MG Tab PO PRN (08:44)
[2019-10-28] MEDS: Prenatal Multivitamin with Calcium/Folic Acid/Iron Tab PO SCH (08:44)
[2019-10-28 09:03] VITALS: BP 111/59; PULSE 71
--- NOTE | 2019-10-28 09:10 | PCM.DCSUM1 ---
Discharge Summary - Hospital Course Free Text/Narrative:: Patient is female who presented to the hospital via ambulance after a home delivery. She reports she had 3 appointments at [facility]. No records were available for review. Her YESSICA was 11/14/19 which placed her at 37w4d. She did admit to meth use 3 weeks prior and urine drug screen was positive for opioids and meth. Other labs were unremarkable. Her bleeding was minimal during her stay. Pain was well controlled. She was discharged home on post day 2. - Discharge Data Discharge Date: 10/28/19 Discharge Disposition: Home, Self-Care 01 Condition: Good - Referral to Home Health Primary Care Physician: Brittany Mathur MD - Discharge Diagnosis/Problem(s) (1) Drug use during SNOMED Code(s): 93103198 ICD Code: [id number] - Status: Acute Current Visit: Yes (2) GBS screening not performed SNOMED Code(s): 148302082 ICD Code: [id number] - Status: Acute Current Visit: Yes (3) , high-risk, obstetrical care insufficient SNOMED Code(s): 1207178264894 ICD Code: O09.30 - SUPRVSN OF PREG W INSUFFICIENT ANTENAT CARE, UNSP TRIMESTER Status: Acute Current Visit: No (4) UTI (urinary tract infection) SNOMED Code(s): 63459271 ICD Code: N39.0 - URINARY TRACT INFECTION, SITE NOT SPECIFIED Status: Resolved Current Visit: No (5) Vaginal delivery SNOMED Code(s): 238408723 ICD Code: O80 - ENCOUNTER FOR FULL-TERM UNCOMPLICATED DELIVERY Status: Acute Current Visit: No - Patient Instructions Diet: Regular Diet as Tolerated - Discharge Plan *PRESCRIPTION DRUG MONITORING PROGRAM REVIEWED*: No *COPY OF PRESCRIPTION DRUG MONITORING REPORT IN PATIENT SIMIN: No Home Medications: Home Meds Pnv No.95/Ferrous Fum/Folic AC [ Tablet] 1 tab PO DAILY 03/30/18 [ History] . [No Known Home Meds] 06/08/19 [History] Patient Handouts: Home Care Instructions for Mom - Discharge Summary/Plan Comment DC Time >30 min.: No - Patient Data Vitals - Most Recent: Last Vital Signs Temp 97.9 F 10/28/19 08:00 Pulse 71 10/28/19 08:00 Resp 18 10/28/19 08:00 BP 111/59 L 10/28/19 08:00 Pulse Ox 97 10/28/19 08:00 Weight - Most Recent: 139 lb I&O - Last 24 hours: Intake & Output 10/27/19 10/28/19 10/28/19 22:59 06:59 14:59 Intake Total 1200 Balance 1200 DANIELA Results - Last 24 hrs: Microbiology 10/26/19 19:35 Urine Culture - Final Urine, Clean Catch NO GROWTH AFTER 2 DAYS Med Orders - Current: Current Medications Acetaminophen (Tylenol) 650 mg PO Q6H PRN PRN Reason: mild pain or fever Last Admin: 10/27/19 20:23 Dose: 650 mg Benzocaine/Menthol (Dermoplast Pain Relief [place]) 0 gm TOP Q4H PRN PRN Reason: Perineal comfort measures Carboprost Tromethamine (Hemabate Ds) 250 mcg IM ASDIRECTED PRN PRN Reason: Excessive vaginal bleeding Docusate Sodium (Colace) 100 mg PO BID PRN PRN Reason: Constipation Last Admin: 10/28/19 08:43 Dose: 100 mg Ferrous Sulfate (Ferrous Sulfate) 325 mg PO DAILY [facility] Last Admin: 10/28/19 08:43 Dose: 325 mg Tranexamic Acid 1,000 mg/ (Sodium Chloride) 110 mls @ 660 mls/hr IV ONETIME PRN PRN Reason: Bleeding Ibuprofen (Motrin) 800 mg PO Q8H PRN PRN Reason: Mild Pain or Fever Last Admin: 10/28/19 08:44 Dose: 800 mg Misoprostol (Cytotec) 800 mcg RECTAL ONETIME PRN PRN Reason: Hemorrhage Nitrofurantoin Macrocrystals (Macrobid) 100 mg PO BID [facility] Last Admin: 10/28/19 08:43 Dose: 100 mg Oxytocin (Pitocin) 10 unit IM ONETIME PRN PRN Reason: Bleeding Prenat Multivit/Government Affairs Researcher/Iron/Folic Ac ( Plus Iron) 1 each PO DAILY [facility] Last Admin: 10/28/19 08:44 Dose: 1 each Simethicone (Simethicone) 80 mg PO Q4H PRN PRN Reason: Gas Sodium Chloride (Saline Flush) 10 ml FLUSH ASDIRECTED PRN PRN Reason: Keep Vein Open Zolpidem Tartrate (Ambien) 5 mg PO BEDTIME PRN PRN Reason: Insomnia Discontinued Medications Oxytocin (Pitocin) 10 unit IM ONETIME ONE Stop: 10/26/19 14:14 Last Admin: 10/26/19 14:30 Dose: 10 unit Oxytocin (Pitocin) Confirm Administered Dose 10 unit .ROUTE .STK-MED ONE Stop: 10/26/19 14:19 Last Admin: 10/26/19 19:26 Dose: Not Given
== END 2019-10-28 14:00 | disposition home or self-care (01) | DRG 776 ==
LOC: DL.OB 13:52 → DL.MS 10-28 02:16
PROVIDERS: ADMIT Obstetrics & Gynecology; ATTEND Obstetrics & Gynecology
DX: Z39.0 Encounter for care and examination of mother immediately after delivery (principal); O99.325 Drug use complicating the puerperium; O86.20 Urinary tract infection following delivery, unspecified; F15.90 Other stimulant use, unspecified, uncomplicated; F11.90 Opioid use, unspecified, uncomplicated; O90.81 Anemia of the puerperium; D64.9 Anemia, unspecified
CPT/HCPCS: 36415; 80305-QW; 80307; 81001; 85027; 86592; 86762; 86803; 86850; 86900; 86901; 87086; 87340; 87389; A9270-GY; J2590

== ENCOUNTER 2019-12-01 14:27 | Observation (INO) | payer OTHER, MEDICAID ==
[2019-12-01] MEDS ORDERED: Sodium Chloride 0.9% 10 ML Syringe FLUSH PRN (15:38)
[2019-12-01 16:25] LABS: ANION GAP 12.1; CHLORIDE,CL 106 mmol/L (101-111); SODIUM,NA 137 mmol/L (135-145)
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
[2019-12-01] MEDS ORDERED: Docusate Sodium 100 MG Cap PO PRN (17:41)
[2019-12-01] MEDS ORDERED: Acetaminophen 325 MG Tab PO PRN (17:41)
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
[2019-12-01] MEDS: Acetaminophen/oxyCODONE 325-5 MG Tab PO PRN (20:55)
[2019-12-01] MEDS: Sodium Chloride 0.9% 10 ML Syringe FLUSH PRN (20:58)
[2019-12-02] MEDS: Acetaminophen/oxyCODONE 325-5 MG Tab PO PRN ×5 (04:20→21:23)
--- NOTE | 2019-12-02 11:21 | PN ---
DATE: 12/02/2019 SUBJECTIVE: The patient is doing fairly well. We started her on regular diet last night as the patient was getting hungry. The patient denies any chest pain, shortness of breath, fever or chills, or any significant headache. LABORATORY DATA: Lab workup this morning; WBC 6.3, hemoglobin is 8.1, hematocrit is 29.7, platelet is 414. OBJECTIVE: Vital Signs: Blood pressure is 119/85, pulse of 60, respiration of 16, temperature of 100.1. SHEENT: Remarkable for the laceration on the left nasal angle with some slight erythema, but no drainage. There is still swelling on the left periorbital area and left lip. Heart: Regular rate and rhythm. Normal S1 and S2. No gallops. No rubs. Lungs: Equal bilaterally. No crackles. No wheezing. Abdomen: Soft, nontender. Bowel sounds positive. Extremities: Negative for any pedal edema. No calf tenderness. Neurologic: Nonfocal. PLAN: We will continue with her present management. I am going to put her on Keflex 500 mg t.i.d. because of some signs of inflammation/infection setting on the lacerated wound on the left nasal angle. [facility] /[id number]
[2019-12-02] MEDS: Cephalexin 250 MG Cap PO SCH ×2 (12:25→17:28)
[2019-12-02] MEDS: Sodium Chloride 0.9% 10 ML Syringe FLUSH PRN (12:27)
[2019-12-02] MEDS: Ibuprofen 200 MG Tab PO PRN (14:29)
[2019-12-03] MEDS: Cephalexin 250 MG Cap PO SCH ×3 (01:17→14:39)
[2019-12-03] MEDS: Ibuprofen 200 MG Tab PO PRN (01:26)
[2019-12-03] MEDS: Acetaminophen/oxyCODONE 325-5 MG Tab PO PRN ×2 (05:26→10:17)
[2019-12-03 07:42] VITALS: BP 108/50; PULSE 77
--- NOTE | 2019-12-03 12:07 | PN ---
DATE: 12/03/2019 SUBJECTIVE: The patient continues to do well, and she is still complaining of some mild headache and facial swelling, but this is getting better. She thinks she is ready to go home. She denies any chest pain, shortness of breath, abdominal pain, or any other complaints. OBJECTIVE: Vital Signs: Blood pressure is 108/50, pulse 77, respirations 16, temperature of 98.6, and saturation is 99%. SHEENT: Remarkable for the swelling and puffiness on the left periorbital area and lip area and then there is the lacerated wound that is well coapted on the left nasal area. Heart: Regular rate and rhythm. Normal S1 and S2. No gallops. No rubs. Lungs: Equal bilaterally. No crackles, no wheezing. Abdomen: Soft, nontender. Bowel sounds are positive. Extremities: Negative for any pedal edema. No calf tenderness. Neurologic: Negative for any lateralizing sign. PLAN: We will discharge the patient home today. We will continue with oral antibiotics for the next 5 to 7 days, and we will have her follow up with her primary care provider in 1 week. CONDITION ON DISCHARGE: Improved. [facility] /[id number]
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
== END 2019-12-03 13:00 | disposition home or self-care (01) ==
LOC: DL.ED 14:27 → DL.MS 17:14 → DL.ED 17:18
PROVIDERS: ADMIT Internal Medicine; ATTEND Internal Medicine
DX: S00.83XA Contusion of other part of head, initial encounter (principal); S02.2XXA Fracture of nasal bones, initial encounter for closed fracture; S06.0X9A Concussion with loss of consciousness of unspecified duration, initial encounter; D64.9 Anemia, unspecified; J32.0 Chronic maxillary sinusitis; F17.210 Nicotine dependence, cigarettes, uncomplicated; Y04.2XXA Assault by strike against or bumped into by another person, initial encounter; Z88.0 Allergy status to penicillin
CPT/HCPCS: 36415; 70450; 70486; 72125; 80053; 80305; 80320; 81001; 81025; 85025; 87086; 99284; A9270; 87088; 87186; G0378; G0480

== ENCOUNTER 2021-10-07 16:21 | Emergency (ER) | payer SELFPAY ==
[2021-10-07] MEDS ORDERED: Naloxone 2 MG/2 ML Syringe IVPUSH ONE (16:45)
[2021-10-07] MEDS ORDERED: Naloxone 2 MG in Sodium Chloride 0.9% 500 ML IV SCH (17:00)
[2021-10-07 17:08] LABS: ANION GAP 12.6 mEq/L (7-13); CHLORIDE,CL 103 mmol/L (98-107); SODIUM,NA 139 mmol/L (136-145)
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
[2021-10-07 18:45] VITALS: BP 142/80; PULSE 80
== END 2021-10-07 19:20 | disposition home or self-care (01) ==
LOC: DL.ED 16:21
DX: T40.601A Poisoning by unspecified narcotics, accidental (unintentional), initial encounter (principal); R74.8 Abnormal levels of other serum enzymes; D50.9 Iron deficiency anemia, unspecified; Z88.0 Allergy status to penicillin
CPT/HCPCS: 36415; 80053; 80307; 83735; 85025; 86140; 96374; 99284; J2310

== ENCOUNTER 2024-09-21 14:04 | Inpatient (IN) | payer SELFPAY ==
[2024-09-21 14:57] LABS: HEMATOCRIT 36.7 % (37.0-47.0); HEMOGLOBIN 10.5 g/dL (12.0-16.0); MEAN CORPUSCULAR HEMOGLOBIN 20.9 pg (27.0-34.0); MEAN CORPUSCULAR HGB CONC 28.6 g/dL (33.0-35.0); PLATELET COUNT,PLT 455 10^3/uL (150-450); RED BLOOD CELL COUNT 5.03 10^6/uL (4.2-5.4)
[2024-09-21 15:09] LABS: A/G RATIO 0.8; ALBUMIN 3.5 g/dL (3.4-5.0); ANION GAP 17.6 mEq/L (7-13); BILIRUBIN TOTAL 0.3 mg/dL (0.2-1.0); BUN/CREATININE RATIO 10.3 (No establ ref range); C-REACTIVE PROTEIN 3.28 ng/dL (<=0.50); CALCIUM 9.2 mg/dL (8.5-10.1); CREATININE 0.58 mg/dL (0.55-1.02); EST CRCL DRUG DOSING (CG) 114.21 mL/min; POTASSIUM,K 3.6 mmol/L (3.5-5.1); PROTEIN TOTAL,TP 7.9 g/dL (6.4-8.2)
[2024-09-21 15:17] LABS: BAND PERCENT MAN 1 %; LYMPHOCYTES PERCENT MAN 13 % (20-50); MONOCYTES PERCENT MAN 3 % (2-8); SEG NEUTROPHILS PERCENT MAN 83 % (42-75)
[2024-09-21 15:18] LABS: HYPOCHROMASIA 2+ MODERATE
[2024-09-21 15:27] LABS: LACTIC ACID 1.7 mmol/L (0.4-2.0)
[2024-09-21 15:37] LABS: INR 0.9 (0.9-1.2); PROTHROMBIN TIME 9.2 SEC (9.0-12.0)
[2024-09-21] MEDS: MVI, Adult with Vitamin K 10 ML, Folic Acid 1 MG, Thiamine 100 MG in Lactated Ringers 1... IV ONE (15:39)
[2024-09-21] MEDS: Sodium Chloride 0.9% 1,000 ML IV ONE (15:42)
[2024-09-21] MEDS: Ketorolac 30 MG/ML SDV IVPUSH ONE (15:42)
[2024-09-21] MEDS: Clindamycin in 0.9 % Sod Chlor 900 MG in Premix Bag 1 BAG IV ONE (15:42)
[2024-09-21] MEDS ORDERED: Docusate Sodium 100 MG Cap PO PRN (18:38)
[2024-09-21] MEDS ORDERED: Melatonin 3 MG Tab PO PRN (18:38)
[2024-09-21] MEDS ORDERED: Ondansetron 4 MG/2 ML SDV IVPUSH PRN (18:38)
[2024-09-21] MEDS: Sodium Chloride 0.9% 1,000 ML IV SCH (20:39)
[2024-09-21] MEDS: cefTRIAXone 1 GM Vial IVPUSH SCH (20:40)
[2024-09-21] MEDS: Enoxaparin 40 MG/0.4 ML Syringe SUBCUT SCH (20:44)
[2024-09-22] MEDS: Acetaminophen 325 MG Tab PO PRN (04:46)
[2024-09-22 06:08] LABS: HEMATOCRIT 31.2 % (37.0-47.0); HEMOGLOBIN 8.8 g/dL (12.0-16.0); MEAN CORPUSCULAR HEMOGLOBIN 21.1 pg (27.0-34.0); MEAN CORPUSCULAR HGB CONC 28.2 g/dL (33.0-35.0); MEAN CORPUSCULAR VOLUME 74.6 fL (80-100); PLATELET COUNT,PLT 386 10^3/uL (150-450); RED BLOOD CELL COUNT 4.18 10^6/uL (4.2-5.4); WHITE BLOOD CELL COUNT,WBC 9.6 10^3/uL (5.0-10.0)
[2024-09-22 06:16] LABS: EOSINOPHILS PERCENT AUTO 2.6 % (1.0-3.0); LYMPHOCYTES PERCENT AUTO 18.4 % (20.5-50.1); MONOCYTES PERCENT AUTO 7.4 % (2-8); NEUTROPHILS PERCENT AUTO 70.6 % (42.2-75.2)
[2024-09-22 06:32] LABS: EOSINOPHILS PERCENT MAN 3 % (1-3); LYMPHOCYTES PERCENT MAN 15 % (20-50); MONOCYTES PERCENT MAN 6 % (2-8); SEG NEUTROPHILS PERCENT MAN 76 % (42-75)
[2024-09-22 06:33] LABS: HYPOCHROMASIA 1+ SLIGHT
[2024-09-22 06:40] LABS: ALBUMIN 2.6 g/dL (3.4-5.0); ANION GAP 11.2 mEq/L (7-13); BILIRUBIN TOTAL 0.1 mg/dL (0.2-1.0); BUN/CREATININE RATIO 13.8 (No establ ref range); CALCIUM 8.2 mg/dL (8.5-10.1); CREATININE 0.58 mg/dL (0.55-1.02); EST CRCL DRUG DOSING (CG) 114.21 mL/min; POTASSIUM,K 4.2 mmol/L (3.5-5.1); PROTEIN TOTAL,TP 6.3 g/dL (6.4-8.2)
[2024-09-22 06:43] LABS: A/G RATIO 0.7
[2024-09-22] MEDS: VANCOmycin 1.5 GM/300 ML 1.5 GM in Premix Bag 1 BAG IV SCH (08:03)
[2024-09-22 08:26] LABS: APPEARANCE,URINE CLEAR (CLEAR); BILIRUBIN,URINE NEGATIVE (NEGATIVE); COLOR,URINE YELLOW (YELLOW); GLUCOSE,URINE NEGATIVE (NEGATIVE); KETONES,URINE NEGATIVE (NEGATIVE); LEUKOCYTE ESTERASE,URINE NEGATIVE (NEGATIVE); NITRITE,URINE NEGATIVE (NEGATIVE); OCCULT BLOOD,URINE MODERATE (NEGATIVE); PH,URINE 6.5 (5.0-9.0); PROTEIN,URINE 30 (NEGATIVE)
[2024-09-22 08:31] LABS: AMPHETAMINES,URINE POSITIVE (NEGATIVE); BARBITURATES,URINE NEGATIVE (NEGATIVE); BENZODIAZEPINE,URINE NEGATIVE (NEGATIVE); MDMA (ECSTASY), URINE NEGATIVE (NEGATIVE); METHADONE,URINE NEGATIVE (NEGATIVE); METHAMPHETAMINES,URINE POSITIVE (NEGATIVE); OPIATES,URINE NEGATIVE (NEGATIVE); OXYCODONE,URINE NEGATIVE (NEGATIVE); PHENCYCLIDINE,URINE NEGATIVE (NEGATIVE); TCA,URINE NEGATIVE (NEGATIVE)
[2024-09-22 08:50] LABS: AMORPHOUS SEDIMENT,URINE FEW /HPF (NOT SEEN); BACTERIA,URINE FEW /HPF (0-FEW/HPF); EPITHELIAL CELLS,URINE FEW /HPF (NOT SEEN); MUCUS,URINE FEW /LPF (NOT SEEN); WBC,URINE 0-5 /HPF (0-5/HPF)
[2024-09-23] MEDS: VANCOmycin 1.75 GM/350 ML 350 ML IV SCH (10:40)
[2024-09-23] MEDS: oxyCODONE 5 MG Tab PO PRN (10:43)
[2024-09-24 06:42] LABS: CREATININE 0.64 mg/dL (0.55-1.02); EST CRCL DRUG DOSING (CG) 103.5 mL/min; VANCOMYCIN RANDOM 15.4 ug/mL (No Normal Range)
[2024-09-24] MEDS: Lidocaine 1% 5 ML VIAL INJECT ONE (13:45)
[2024-09-24] MEDS: HYDROmorphone 0.5 MG/0.5 ML Syringe IVPUSH PRN (13:45)
[2024-09-24 16:42] VITALS: BP 134/97; PULSE 117
[2024-09-24] MEDS ORDERED: VANCOmycin 1.5 GM/300 ML 300 ML IV SCH (20:00)
== END 2024-09-24 18:11 | disposition left against medical advice (07) | DRG 603 ==
LOC: DL.ED 14:04 → UNDOADMIN 17:59 → DL.MS 17:59
PROVIDERS: ADMIT Internal Medicine; ATTEND Internal Medicine
DX: L03.114 Cellulitis of left upper limb (principal); D64.9 Anemia, unspecified; E86.9 Volume depletion, unspecified; F19.10 Other psychoactive substance abuse, uncomplicated; F10.920 Alcohol use, unspecified with intoxication, uncomplicated; F17.210 Nicotine dependence, cigarettes, uncomplicated; Z88.1 Allergy status to other antibiotic agents; Z90.89 Acquired absence of other organs; Z79.899 Other long term (current) drug therapy
CPT/HCPCS: 36415; 73130-LT; 80053; 80202; 80305-QW; 80307; 81001; 81025; 82140; 82565; 82947; 83605; 85025; 85610; 86140; 87040; 96365; 96367; 96368; 96375; 99223; 99232; 99238; 99284; 99285-25; A9270-GY; J0696; J1171; J1650; J1885; J3372; J3411; J3490; J7030; J7050; J7120

== ENCOUNTER 2024-11-21 00:43 | Emergency (ER) | payer SELFPAY ==
[~2024-11-21 00:43] MED LIST: MVI, Adult with Vitamin K 10 ML, Folic Acid 1 MG, Thiamine 100 MG in Lactated Ringers 1... IV ONE
[2024-11-21 00:47] VITALS: BP 137/74; PULSE 105
== END 2024-11-21 01:07 | disposition left against medical advice (07) ==
LOC: DL.ED 00:43
DX: F10.120 Alcohol abuse with intoxication, uncomplicated (principal); F17.210 Nicotine dependence, cigarettes, uncomplicated; Z88.0 Allergy status to penicillin; Y90.9 Presence of alcohol in blood, level not specified
CPT/HCPCS: 99283; 99284

== ENCOUNTER 2025-04-05 09:54 | Inpatient (IN) | payer SELFPAY ==
[2025-04-05 10:52] LABS: BASOPHILS PERCENT AUTO 0.4 % (0.0-1.0); EOSINOPHILS PERCENT AUTO 0.1 % (1.0-3.0); HEMATOCRIT 34.5 % (37.0-47.0); HEMOGLOBIN 10.8 g/dL (12.0-16.0); LYMPHOCYTES PERCENT AUTO 7.6 % (20.5-50.1); MEAN CORPUSCULAR HEMOGLOBIN 24.5 pg (27.0-34.0); MEAN CORPUSCULAR HGB CONC 31.3 g/dL (33.0-35.0); MEAN CORPUSCULAR VOLUME 78.4 fL (80-100); MONOCYTES PERCENT AUTO 9.3 % (2-8); NEUTROPHILS PERCENT AUTO 82.6 % (42.2-75.2); PLATELET COUNT,PLT 365 10^3/uL (150-450); WHITE BLOOD CELL COUNT,WBC 13.8 10^3/uL (5.0-10.0)
[2025-04-05] MEDS: Sodium Chloride 0.9% 1,000 ML IV ONE ×2 (10:52→12:59)
[2025-04-05] MEDS: HYDROmorphone 0.5 MG/0.5 ML Syringe IVPUSH ONE (10:53)
[2025-04-05] MEDS: Acetaminophen 500 MG Tab PO ONE (10:53)
[2025-04-05] MEDS: Ketorolac 30 MG/ML SDV IVPUSH ONE (10:53)
[2025-04-05] MEDS: Ondansetron 4 MG/2 ML SDV IVPUSH ONE (10:53)
[2025-04-05 11:00] LABS: APPEARANCE,URINE CLOUDY (CLEAR); BILIRUBIN,URINE NEGATIVE (NEGATIVE); COLOR,URINE YELLOW (YELLOW); GLUCOSE,URINE NEGATIVE (NEGATIVE); KETONES,URINE 40 (NEGATIVE); LEUKOCYTE ESTERASE,URINE MODERATE (NEGATIVE); NITRITE,URINE POSITIVE (NEGATIVE); OCCULT BLOOD,URINE LARGE (NEGATIVE); PROTEIN,URINE >=300 (NEGATIVE); UROBILINOGEN,URINE 0.2 mg/dL (0.2-1.0)
[2025-04-05 11:05] LABS: AMPHETAMINES,URINE POSITIVE (NEGATIVE); BARBITURATES,URINE NEGATIVE (NEGATIVE); BENZODIAZEPINE,URINE NEGATIVE (NEGATIVE); MDMA (ECSTASY), URINE NEGATIVE (NEGATIVE); METHADONE,URINE NEGATIVE (NEGATIVE); METHAMPHETAMINES,URINE POSITIVE (NEGATIVE); OPIATES,URINE NEGATIVE (NEGATIVE); OXYCODONE,URINE NEGATIVE (NEGATIVE); PHENCYCLIDINE,URINE NEGATIVE (NEGATIVE); TCA,URINE NEGATIVE (NEGATIVE)
[2025-04-05 11:06] LABS: WBC,URINE PACKED /HPF (0-5/HPF)
[2025-04-05 11:07] LABS: AMORPHOUS SEDIMENT,URINE FEW /HPF (NOT SEEN); BACTERIA,URINE MANY /HPF (0-FEW/HPF); EPITHELIAL CELLS,URINE FEW /HPF (NOT SEEN); MUCUS,URINE MODERATE /LPF (NOT SEEN)
[2025-04-05 11:12] LABS: ALBUMIN 3.2 g/dL (3.4-5.0); ANION GAP 16.3 mEq/L (7-13); BILIRUBIN TOTAL 0.7 mg/dL (0.2-1.0); C-REACTIVE PROTEIN 7.61 ng/dL (<=0.50); CALCIUM 8.9 mg/dL (8.5-10.1); CREATININE 0.73 mg/dL (0.55-1.02); EST CRCL DRUG DOSING (CG) 94.06 mL/min; MAGNESIUM 1.4 mg/dL (1.8-2.4); POTASSIUM,K 3.3 mmol/L (3.5-5.1); PROTEIN TOTAL,TP 7.6 g/dL (6.4-8.2)
[2025-04-05 11:15] LABS: LACTIC ACID 1.4 mmol/L (0.4-2.0)
[2025-04-05 11:20] LABS: A/G RATIO 0.73
[2025-04-05] MEDS: Iopamidol 612 MG/ML 100 ML Bottle IVPUSH ONE (11:44)
[2025-04-05] MEDS: Potassium Chloride 10 MEQ Tab.ER PO ONE (11:56)
[2025-04-05] MEDS: Doxycycline Monohydrate 100 MG Cap PO ONE (12:48)
[2025-04-05] MEDS: Magnesium Sulfate 2 GM/50 mL 2 GM in Premix Bag 1 BAG IV ONE (12:59)
[2025-04-05] MEDS: cefTRIAXone 2 GM Vial IVPUSH ONE (12:59)
[2025-04-05] MEDS ORDERED: Polyethylene Glycol 3350 Powder 17 GM Packet PO PRN (14:03)
[2025-04-05] MEDS ORDERED: Docusate Sodium 100 MG Cap PO PRN (14:03)
[2025-04-05] MEDS ORDERED: Sennosides/Docusate Sodium 50-8.6 MG Tab PO PRN (14:03)
[2025-04-05] MEDS ORDERED: Bisacodyl 5 MG Tab PO PRN (14:03)
[2025-04-05] MEDS ORDERED: Melatonin 3 MG Tab PO PRN (14:03)
[2025-04-05] MEDS: Magnesium Oxide 400 MG Tab PO SCH (15:09)
[2025-04-05] MEDS: Acetaminophen 325 MG Tab PO PRN (15:09)
[2025-04-05] MEDS ORDERED: LORazepam 2 MG/ML SDV IVPUSH PRN ×2 (15:33→20:29)
[2025-04-05] MEDS: Sodium Chloride 0.9% 1,000 ML IV SCH (15:35)
[2025-04-05 16:43] LABS: ANION GAP 14.3 mEq/L (7-13); CREATININE 0.78 mg/dL (0.55-1.02); EST CRCL DRUG DOSING (CG) 88.03 mL/min; MAGNESIUM 2.2 mg/dL (1.8-2.4); POTASSIUM,K 4.3 mmol/L (3.5-5.1)
[2025-04-05] MEDS: Multivitamin Tab PO SCH (17:07)
[2025-04-05] MEDS: Thiamine 100 MG Tab PO SCH (17:07)
[2025-04-05] MEDS: Folic Acid 1 MG Tab PO SCH (17:07)
[2025-04-05] MEDS: chlordiazePOXIDE 25 MG Cap PO SCH (17:07)
[2025-04-05 17:10] LABS: PERCENT FE SATURATION 5.3 % (20.0-50.0)
[2025-04-05] MEDS: Doxycycline Monohydrate 100 MG Cap PO SCH (20:29)
[2025-04-05] MEDS: Ketorolac 30 MG/ML SDV IVPUSH PRN (20:30)
[2025-04-05] MEDS: Meropenem 1 GM SDV IVPUSH SCH (22:04)
[2025-04-06 06:54] LABS: ANION GAP 12.3 mEq/L (7-13); BILIRUBIN TOTAL 0.3 mg/dL (0.2-1.0); BUN/CREATININE RATIO 11.9 (No establ ref range); C-REACTIVE PROTEIN 13.04 ng/dL (<=0.50); CALCIUM 8.3 mg/dL (8.5-10.1); CREATININE 0.67 mg/dL (0.55-1.02); EST CRCL DRUG DOSING (CG) 102.49 mL/min; MAGNESIUM 2.1 mg/dL (1.8-2.4); POTASSIUM,K 4.3 mmol/L (3.5-5.1); PROTEIN TOTAL,TP 5.8 g/dL (6.4-8.2)
[2025-04-06 06:58] LABS: A/G RATIO 0.53
[2025-04-06 07:21] LABS: HEMATOCRIT 34.5 % (37.0-47.0); HEMOGLOBIN 10.3 g/dL (12.0-16.0); MEAN CORPUSCULAR HEMOGLOBIN 24.3 pg (27.0-34.0); MEAN CORPUSCULAR HGB CONC 29.9 g/dL (33.0-35.0); MEAN CORPUSCULAR VOLUME 81.4 fL (80-100); PLATELET COUNT,PLT 303 10^3/uL (150-450); RED BLOOD CELL COUNT 4.24 10^6/uL (4.2-5.4); WHITE BLOOD CELL COUNT,WBC 18.1 10^3/uL (5.0-10.0)
[2025-04-06 07:25] LABS: BASOPHILS PERCENT AUTO 0.2 % (0.0-1.0); EOSINOPHILS PERCENT AUTO 0.8 % (1.0-3.0); LYMPHOCYTES PERCENT AUTO 9.2 % (20.5-50.1); MONOCYTES PERCENT AUTO 6.1 % (2-8); NEUTROPHILS PERCENT AUTO 83.7 % (42.2-75.2)
[2025-04-06 07:35] LABS: LYMPHOCYTES PERCENT MAN 11 % (20-50); MONOCYTES PERCENT MAN 5 % (2-8); SEG NEUTROPHILS PERCENT MAN 84 % (42-75)
[2025-04-06] MEDS: Enoxaparin 40 MG/0.4 ML Syringe SUBCUT SCH (09:38)
[2025-04-06] MEDS: chlordiazePOXIDE 25 MG Cap PO SCH (16:43)
[2025-04-06] MEDS ORDERED: HYDROmorphone 0.5 MG/0.5 ML Syringe IVPUSH PRN (18:54)
[2025-04-06] MEDS: Ondansetron 4 MG/2 ML SDV IVPUSH PRN (19:30)
[2025-04-06] MEDS: Ketorolac 30 MG/ML SDV IVPUSH PRN (19:34)
[2025-04-06] MEDS: Cefepime 2 GM Vial IVPUSH SCH (19:40)
[2025-04-06] MEDS: VANCOmycin 1 GM in Sodium Chloride 0.9% 250 ML IV SCH (19:47)
[2025-04-07 06:21] LABS: BASOPHILS PERCENT AUTO 0.2 % (0.0-1.0); HEMATOCRIT 32.3 % (37.0-47.0); HEMOGLOBIN 9.4 g/dL (12.0-16.0); LYMPHOCYTES PERCENT AUTO 11.6 % (20.5-50.1); MEAN CORPUSCULAR HEMOGLOBIN 23.6 pg (27.0-34.0); MEAN CORPUSCULAR HGB CONC 29.1 g/dL (33.0-35.0); NEUTROPHILS PERCENT AUTO 78.2 % (42.2-75.2); PLATELET COUNT,PLT 334 10^3/uL (150-450); RED BLOOD CELL COUNT 3.99 10^6/uL (4.2-5.4); WHITE BLOOD CELL COUNT,WBC 12.5 10^3/uL (5.0-10.0)
[2025-04-07 06:49] LABS: ALBUMIN 2.1 g/dL (3.4-5.0); BILIRUBIN TOTAL 0.2 mg/dL (0.2-1.0); BUN/CREATININE RATIO 10.9 (No establ ref range); C-REACTIVE PROTEIN 9.43 ng/dL (<=0.50); CALCIUM 8.4 mg/dL (8.5-10.1); CREATININE 0.64 mg/dL (0.55-1.02); EST CRCL DRUG DOSING (CG) 107.29 mL/min; MAGNESIUM 1.8 mg/dL (1.8-2.4); PROTEIN TOTAL,TP 6.1 g/dL (6.4-8.2)
[2025-04-07 06:51] LABS: A/G RATIO 0.53
[2025-04-07] MEDS: VANCOmycin 1 GM in Sodium Chloride 0.9% 250 ML IV SCH (10:04)
[2025-04-07] MEDS: Sodium Chloride 0.9% 10 ML Syringe FLUSH PRN (19:30)
[2025-04-08 06:38] LABS: BASOPHILS PERCENT AUTO 0.4 % (0.0-1.0); EOSINOPHILS PERCENT AUTO 0.6 % (1.0-3.0); HEMOGLOBIN 10.5 g/dL (12.0-16.0); LYMPHOCYTES PERCENT AUTO 20.5 % (20.5-50.1); MEAN CORPUSCULAR HEMOGLOBIN 24.3 pg (27.0-34.0); MEAN CORPUSCULAR HGB CONC 30.9 g/dL (33.0-35.0); MEAN CORPUSCULAR VOLUME 78.7 fL (80-100); NEUTROPHILS PERCENT AUTO 67.5 % (42.2-75.2); PLATELET COUNT,PLT 389 10^3/uL (150-450); RED BLOOD CELL COUNT 4.32 10^6/uL (4.2-5.4); WHITE BLOOD CELL COUNT,WBC 6.9 10^3/uL (5.0-10.0)
[2025-04-08 06:52] LABS: ALBUMIN 2.2 g/dL (3.4-5.0); ANION GAP 11.6 mEq/L (7-13); BILIRUBIN TOTAL 0.2 mg/dL (0.2-1.0); BUN/CREATININE RATIO 9.2 (No establ ref range); C-REACTIVE PROTEIN 4.25 ng/dL (<=0.50); CALCIUM 8.8 mg/dL (8.5-10.1); CREATININE 0.65 mg/dL (0.55-1.02); EST CRCL DRUG DOSING (CG) 105.64 mL/min; MAGNESIUM 1.6 mg/dL (1.8-2.4); POTASSIUM,K 3.6 mmol/L (3.5-5.1); PROTEIN TOTAL,TP 6.5 g/dL (6.4-8.2)
[2025-04-08 06:57] LABS: A/G RATIO 0.51
[2025-04-08] MEDS: cefTRIAXone 2 GM Vial IVPUSH SCH (10:14)
[2025-04-08] MEDS: Magnesium Oxide 400 MG Tab PO SCH (10:15)
[2025-04-09 06:41] LABS: BASOPHILS PERCENT AUTO 0.4 % (0.0-1.0); EOSINOPHILS PERCENT AUTO 1.1 % (1.0-3.0); HEMATOCRIT 36.9 % (37.0-47.0); HEMOGLOBIN 11.4 g/dL (12.0-16.0); LYMPHOCYTES PERCENT AUTO 19.3 % (20.5-50.1); MEAN CORPUSCULAR HEMOGLOBIN 24.1 pg (27.0-34.0); MEAN CORPUSCULAR HGB CONC 30.9 g/dL (33.0-35.0); MEAN CORPUSCULAR VOLUME 77.8 fL (80-100); MONOCYTES PERCENT AUTO 13.8 % (2-8); NEUTROPHILS PERCENT AUTO 65.4 % (42.2-75.2); PLATELET COUNT,PLT 397 10^3/uL (150-450); RED BLOOD CELL COUNT 4.74 10^6/uL (4.2-5.4); WHITE BLOOD CELL COUNT,WBC 7.6 10^3/uL (5.0-10.0)
[2025-04-09 07:38] LABS: ALBUMIN 2.5 g/dL (3.4-5.0); ANION GAP 11.8 mEq/L (7-13); BILIRUBIN TOTAL 0.2 mg/dL (0.2-1.0); BUN/CREATININE RATIO 13.3 (No establ ref range); C-REACTIVE PROTEIN 2.26 ng/dL (<=0.50); CALCIUM 9.1 mg/dL (8.5-10.1); CREATININE 0.6 mg/dL (0.55-1.02); EST CRCL DRUG DOSING (CG) 114.44 mL/min; POTASSIUM,K 3.8 mmol/L (3.5-5.1); PROTEIN TOTAL,TP 7.1 g/dL (6.4-8.2)
[2025-04-09 07:39] LABS: A/G RATIO 0.54
[2025-04-09 08:51] VITALS: BP 121/65; PULSE 84
[2025-04-09 12:47] LABS: C.TRACHOMATIS BY TMA Negative (Negative); M GENITALIUM Negative (Negative); M GENITALIUM SOURCE Urine; N.GONORRHOEAE BY TMA Negative (Negative); SOURCE Urine
== END 2025-04-09 10:43 | disposition left against medical advice (07) | DRG 872 ==
LOC: DL.ED 09:54 → DL.MS 13:02 → DL.ED 13:27
PROVIDERS: ADMIT Student in an Organized Health Care Education/Training Program; ATTEND Student in an Organized Health Care Education/Training Program
DX: A41.51 Sepsis due to Escherichia coli [E. coli] (principal); N12 Tubulo-interstitial nephritis, not specified as acute or chronic; E87.1 Hypo-osmolality and hyponatremia; F10.939 Alcohol use, unspecified with withdrawal, unspecified; F17.210 Nicotine dependence, cigarettes, uncomplicated; D50.9 Iron deficiency anemia, unspecified; E87.6 Hypokalemia; E83.42 Hypomagnesemia; E88.09 Other disorders of plasma-protein metabolism, not elsewhere classified; R74.01 Elevation of levels of liver transaminase levels; F15.90 Other stimulant use, unspecified, uncomplicated; F12.90 Cannabis use, unspecified, uncomplicated; Z90.49 Acquired absence of other specified parts of digestive tract; Z88.1 Allergy status to other antibiotic agents
CPT/HCPCS: 36415; 74177; 80048; 80053; 80202; 80305-QW; 80307; 81001; 81025; 82728; 83540; 83550; 83605; 83735; 85025; 86140; 87040; 87077; 87086; 87088; 87186; 87491; 87563; 87591; 93306; 96361; 96374; 96375; 99223; 99232; 99233; 99238; 99285; 99285-25; A9270-GY; J0692; J0696; J1650; J1885; J2185; J2405; J3475; J7030; J7050; Q9967